=== PATIENT | female | born 1985 | race Caucasian/White ===

== ENCOUNTER 2016-10-05 01:39 | Emergency (ER) | payer SELFPAY ==
[2016-10-05 02:04] LABS: URINE MUCUS NONE SEEN (Up to 25%)
[2016-10-05 02:16] LABS: URINE APPEARANCE SLIGHTLY CLOUDY; URINE COLOR YELLOW; URINE GLUCOSE NORMAL (NEGATIVE); URINE LEUKOCYTE ESTERASE TRACE (NEGATIVE); URINE NITRITE NEGATIVE (NEGATIVE); URINE PH 6.5 (5-7); URINE PROTEIN NEGATIVE (NEG - TRACE)
[2016-10-05 02:17] LABS: URINE BILIRUBIN NEGATIVE (NEGATIVE); URINE BLOOD NEGATIVE (NEGATIVE); URINE KETONE 5mg/dL (NEGATIVE); URINE RBC 0-5/hpf (0-5/hpf); URINE UROBILINOGEN 0.2mg/dL (Normal) (NEG-1mg/dL)
[2016-10-05] MEDS ORDERED: KETOROLAC TROMETHAMINE 60 MG/2 ML VIAL ONE (02:30)
--- NOTE | 2016-10-05 02:37 | ER PHYSICIAN DOCUMENTATION ---
Physician Documentation [facility] Name:Melina Ely Age:31 yrs Sex:Female :1985 Arrival Date:10/05/2016 Time:01:39 Bed4 Private MD:Physician, No ED Kobe Nino Disposition: 10/05/16 02:29 Discharged to Home/Self Care. Impression: Bladder Infection (UTI). - Condition is Good. - Discharge Instructions: BLADDER INFECTION, Female (Adult). - Prescriptions for Bactrim DS 160- 800 mg Oral Tablet - take 1 tablet by ORAL route every 12 hours for 7 days; 14 tablet. - Medical Reconciliation form form. - Follow up: Emergency Department; When: As needed; Reason: Worsening of condition. - Problem is new. - Symptoms have improved. HPI: 10/05 02:26 This 31 yrs old Female presents to ER via Walk In with complaints of flank sc Pain. 02:27 The patient complains of pain in the left low back. The pain does not radiate. Onset: sc The symptom(s)/episode began/occurred 2 day(s) ago. Modifying factors: The symptoms are alleviated by nothing. the symptoms are aggravated by nothing. Associated signs and symptoms: Pertinent positives: dysuria. Severity of pain: At its worst the pain was mild. The patient has experienced similar episodes in the past, a few times, and the symptoms today are exactly the same, to when the patient was apparently diagnosed with uti. Historical: - Allergies: Latex; Tetracycline; - Home Meds: 1. Keppra Oral 2. Depakote Oral 3. Multiple Vitamins oral - PMHx: SEIZURES; - PSHx: CHOLECYSECTOMY; APPENDECTOMY; TUBAL LIGATION; ; - Tetanus: < 10 years. - Ebola Screening: : No symptoms or risks identified at this time. . - Immunization history: Flu Vaccine None. - Social history: Smoking status: Patient uses tobacco products, current every day smoker. ROS: 02:27 Constitutional: Negative for fever, chills, and weight loss. sc Eyes: Negative for injury, pain, redness, and discharge. Cardiovascular: Negative for chest pain, palpitations, and edema. Respiratory: Negative for shortness of breath, cough, wheezing, and pleuritic chest pain. Abdomen/GI: Negative for abdominal pain, nausea, vomiting, diarrhea, and constipation. Back: Negative for injury and pain. Skin: Negative for injury, rash, and discoloration. 02:27 Neuro: Negative for headache, weakness, numbness, tingling, and seizure. sc 02:27 : Positive for flank pain, burning with urination, Negative for urinary frequency, pelvic pain, difficulty urinating. Exam: Constitutional: This is a well developed, well nourished patient who is awake, alert, and in no acute distress. Head/Face: Normocephalic, atraumatic. Eyes: Pupils equal round and reactive to light, extra-ocular motions intact. Lids and lashes normal. Conjunctiva and sclera are non-icteric and not injected. Cornea within normal limits. Periorbital areas with no swelling, redness, or edema. ENT: Nares patent. No nasal discharge, no septal abnormalities noted. Tympanic membranes are normal and external auditory canals are clear. Oropharynx with no redness, swelling, or masses, exudates, or evidence of obstruction, uvula midline. Mucous membranes moist. Cardiovascular: Regular rate and rhythm with a normal S1 and S2. No gallops, murmurs, or rubs. Normal PMI, no JVD. No pulse deficits. Respiratory: Lungs have equal breath sounds bilaterally, clear to auscultation and percussion. No rales, rhonchi or wheezes noted. No increased work of breathing, no retractions or nasal flaring. Abdomen/GI: Soft, non-tender, with normal bowel sounds. No distension or tympany. No guarding or rebound. No evidence of tenderness throughout. Back: No spinal tenderness. No costovertebral tenderness. Full range of motion. Skin: Warm, dry with normal turgor. Normal color with no rashes, no lesions, and no evidence of cellulitis. MS/ Extremity: Pulses equal, no cyanosis. Neurovascular intact. Full, normal range of motion, negative Homans's, calves equal bilaterally. 02:28 Neuro: Awake and alert, GCS 15, oriented to person, place, time, and situation. sc Cranial nerves II-XII grossly intact. Motor strength 5/5 in all extremities. Sensory grossly intact. Cerebellar exam normal. Normal gait. 02:29 Abdomen/GI: Bowel sounds: normal, Palpation: abdomen is soft and non-tender. sc 02:29 : CVA tenderness, on the left. vt Vital Signs: 02:00 BP 111 / 77; Pulse 70; Resp 16; Temp 97.8(O); Pulse Ox 92% on R/A; Weight 61.23 kg; mv Height 5 ft. 6 in. (167.64 cm); Pain 7/10; 02:00 Body Mass Index 21.79 (61.23 kg, 167.64 cm) mv MDM: 02:12 Patient medically screened. vt 02:28 Differential diagnosis: nephrolithiasis, pyelonephritis, UTI. Data reviewed: vital sc signs, nurses notes, lab test result(s), and as a result, I will discharge patient, administer antibiotics. Counseling: I had a detailed discussion with the patient and/or guardian regarding: the historical points, exam findings, and any diagnostic results supporting the discharge/admit diagnosis, lab results, the need for outpatient follow up, to return to the emergency department if symptoms worsen or persist or if there are any questions or concerns that arise at home. 10/05 02:33 Order name: UA W/ MICRO -CULTURE IF IND; Complete Time: 02:51 EDMS 10/05 02:51 Interpretation: Abnormal: URINE WBC 5-10/hpf; URINE BACTERIA 20-50 ORGANISMS/hpf. vt Dispensed Medications: 02:23 Drug: Toradol 60 mg; Route: IM; Site: right gluteus; lb 02:35 Follow up: Response: Pain is decreased lb 02:35 Drug: Bactrim 160 mg-800 mg (DS) 1 tabs; Route: PO; lb 02:36 Follow up: Response: Pharmacy closed - take home med pack lb Signatures: Kobe Simms MD MD sc vogel, margaux mv Bollock, Lynda lb
--- NOTE | 2016-10-05 02:37 | ER NURSING DOCUMENTATION ---
Nurse's Notes [facility] Name:Melina Ely Age:31 yrs Sex:Female :1985 Arrival Date:10/05/2016 Time:01:39 Bed4 Private MD:Ana Monk Diagnosis:Bladder Infection (UTI) Presentation: 10/05 01:55 Presenting complaint: Patient states: left flank pain for 2 days. denies n/v/d. lb Transition of care: Home. Notified ED Physician of Dr. Simms notified. 01:55 Acuity: ARABELLA 3 lb 01:55 Method Of Arrival: Walk In Triage Assessment: 02:09 General: Appears in no apparent distress, Behavior is cooperative, pleasant. Pain: lb Complains of pain in left low back Pain does not radiate. Pain currently is 7 out of 10 on a pain scale. GI: Abdomen is flat, non- distended Bowel sounds present X 4 quads. Abd is soft and non tender X 4 quads. Historical: - Allergies: Latex; Tetracycline; - Home Meds: 1. Keppra Oral 2. Depakote Oral 3. Multiple Vitamins oral - PMHx: SEIZURES; - PSHx: CHOLECYSECTOMY; APPENDECTOMY; TUBAL LIGATION; ; - Tetanus: < 10 years. - Ebola Screening: : No symptoms or risks identified at this time. . - Immunization history: Flu Vaccine None. - Social history: Smoking status: Patient uses tobacco products, current every day smoker. Screenin:10 Infectious Disease Risk None. Abuse screen: Denies threats or abuse. Denies injuries lb from another. Nutritional screening: No deficits noted. Vital Signs: 02:00 BP 111 / 77; Pulse 70; Resp 16; Temp 97.8(O); Pulse Ox 92% on R/A; Weight 61.23 kg; mv Height 5 ft. 6 in. (167.64 cm); Pain 7/10; 02:00 Body Mass Index 21.79 (61.23 kg, 167.64 cm) mv ED Course: 01:40 Patient arrived in ED. em2 01:40 Physician, Ana is Private Physician. em2 01:54 Wendy Baltazar is Primary Nurse. lb 01:55 Triage completed. lb 02:[address] Simms notified. lb 02:10 Valuables Remains with patient Patient has correct armband on for positive lb identification. Placed in gown. Bed in low position. Call light in reach. 02:11 Kobe Simms MD is Attending Physician. sc Administered Medications: 02:23 Drug: Toradol 60 mg; Route: IM; Site: right gluteus; lb 02:35 Follow up: Response: Pain is decreased lb 02:35 Drug: Bactrim 160 mg-800 mg (DS) 1 tabs; Route: PO; lb 02:36 Follow up: Response: Pharmacy closed - take home med pack lb Outcome: 02:29 Discharge ordered by . sc 02:36 Discharged to home ambulatory. lb 02:36 Condition: stable 02:36 Discharge Assessment: Patient awake, alert and oriented x 3. No cognitive and/or functional deficits noted. Patient verbalized understanding of disposition instructions. 02:36 Instructed on discharge instructions, follow up and referral plans. 02:36 Patient left the ED. lb 10/06 10:29 Discharge F/U Call: Unable to reach: lp 10:29 Discharge F/U Call: Unable to reach: no answer lp Signatures: Geraldine Peraza, RN RN lp Kobe Simms MD MD wa Lexi-reg, Patricia-reg em2 ishmael veloz Wendy Baltazar
[2016-10-05] MEDS ORDERED: SULFAMETHOXAZOLE/TMP DS PREPAC 1 TAB TAB PO ONE (02:42)
== END 2016-10-05 02:37 | disposition home or self-care (01) ==
LOC: ER 01:39
DX: N39.0 Urinary tract infection, site not specified (principal); B96.89 Other specified bacterial agents as the cause of diseases classified elsewhere; Z87.440 Personal history of urinary (tract) infections; Z79.899 Other long term (current) drug therapy
CPT/HCPCS: 81001; 87086; 96372; 99283; J1885